=== PATIENT | female | born 1940 | race Caucasian/White ===

== ENCOUNTER 2024-03-08 18:13 | Emergency (ER) | payer MEDICARE, OTHER, SELFPAY ==
[2024-03-08] VITALS (8 sets, daily range): BP systolic 136–181; BP diastolic 74–105
[2024-03-08 18:43] LABS: % Basophils 0.5 % (0-2); % Eosinophils 1.8 % (0-6); % Immature Granulocytes 0.2 % (0-0.5); % Lymphocytes 42.7 % (20.5-51.1); % Monocytes 11.9 % (1.7-9.3); % Neutrophils 42.9 % (42.2-75.2); Absolute Eosinophils 0.1 10^3/uL (0-0.7); Absolute Lymphocytes 2.7 10^3/uL (1.2-3.4); Absolute Monocytes 0.7 10^3/uL (0.1-0.6); Absolute Neutrophils 2.7 10^3/uL (1.4-6.5); Hemoglobin 14.2 g/dL (12.0-16.0); Mean Corp Hgb Conc. 34.6 g/dL (33.0-37.0); Mean Corpuscular Hgb 30.1 pg (27.0-31.0); Mean Corpuscular Volume 86.9 fL (81.0-99.0); Mean Platelet Volume 9.3 fL (7.4-10.4); Nucleated Red Blood Cells % 0 %; Platelet Count 276 10^3/uL (130-400); Red Blood Cell Count 4.72 10^6/uL (4.20-5.40); Red Cell Dist. Width 12.3 % (11.5-14.5); White Blood Cell Count 6.2 10^3/uL (4.8-10.8)
[2024-03-08 18:53] LABS: ALT (SGPT) 36 U/L (0-35); AST (SGOT) 39 U/L (14-36); Albumin 5.1 g/dl (3.5-5.0); Alkaline Phosphatase 73 U/L (38-126); Blood Urea Nitrogen 15 mg/dl (7-17); Calcium 10.3 mg/dl (8.4-10.2); Carbon Dioxide 28 mmol/L (22-30); Chloride 96 mmol/L (98-107); Glucose 129 mg/dl (70-99); Potassium 3.8 mmol/L (3.5-5.1); Sodium 137 mmol/L (135-145); Total Bilirubin 0.4 mg/dl (0.2-1.3); Total Protein 8.1 g/dl (6.3-8.2); eGFR > 60.00
--- NOTE | 2024-03-08 19:10 | ED.GENMED ---
History of Present Illness
General
Chief Complaint: Cardiac Symptoms
Source: patient, spouse and family
Time Seen by Provider: 03/08/24 18:49
History of Present Illness
History of Present Illness:
83-year-old female states that at approximately 530 or 6 PM tonight she felt a hot 'burning' feeling in her superior aspect of her mid chest rating up to her throat that is now fully resolved. She states that she has felt this before when she had
an episode of A-fib over a year ago. She started to then feel really anxious and said she felt shaky, but this is getting better now that she is 'calming down'. She denies chest pain, shortness of breath, headache, dizziness, leg swelling,
abdominal pain, nausea, vomiting, or other complaints. Patient is very compliant with her medications and is due to take her DOAC approximately now. Of note, patient was on amiodarone for approximately a year and this was discontinued
approximately 4 months ago.
Past History
Past History
ED Past Medical History: HTN, Hypercholesterolemia and Other (A-fib)
ED Past Surgical History: Appendectomy, Cholecystectomy and Other (Lumpectomy)
Social History
Tobacco: Non-smoker
Alcohol: None
Drug: None
Personal:
Living: with family
Phy Exam
Physical Exam
Physical Exam:
GENERAL: Alert , in no apparent distress
EYE: pupils equal and reactive
NECK: Supple, no significant adenopathy.
ENT: o/p clr, mmm.
CARDIAC: Irregularly irregular, tachycardic
LUNGS: Clear breath sounds bilaterally, no acute respiratory distress, no wheezes rales or rhonchi
ABDOMEN: Soft, without focal tenderness, no r/g, no cvat
NEUROLOGICAL: Alert and oriented, no focal neuro deficits
SKIN: Warm and dry, skin intact.
MUSCULOSKELETAL: No edema, well perfused.
PSYCH: Normal and appropriate interaction.
Course
Orders/Labs/Results
Orders:
Orders
03/08/24 18:22
Electrocardiogram (*1) Urgent
Reason for Study: Atrial Fibrillation
EKG- Treatment ONCE
03/08/24 18:28
Complete Blood Count/With Diff Urgent
Comprehensive Metabolic Panel Urgent
TSH Reflex To Free T4 Urgent
03/08/24 19:10
Apixaban [Eliquis] 2.5 mg PO NOW STA
Diltiazem HCl [Cardizem] 10 mg IV NOW STA
03/08/24 19:27
Troponin I Urgent
03/08/24 19:58
Electrocardiogram (*1) Urgent
Reason for Study: Other
Other Reason for Exam: rhythm change
EKG- Treatment ONCE
03/08/24 20:32
EKG [Electrocardiogram (*1)] Urgent
Reason for Study: Other
Other Reason for Exam: sinus rhythm
EKG- Treatment ONCE
Abnormal Lab Results
03/08/24
18:28
Absolute Monos (auto) 0.7 H 10^3/uL
(0.1-0.6)
Monocytes % 11.9 H %
(1.7-9.3)
Chloride 96 L mmol/L
(98-107)
Glucose 129 H mg/dl
(70-99)
Calcium 10.3 H mg/dl
(8.4-10.2)
AST 39 H U/L
(14-36)
ALT 36 H U/L
(0-35)
Albumin 5.1 H g/dl
(3.5-5.0)
03/08/24 18:28
03/08/24 18:28
Vital Signs
Initial and Last Documented VS:
Initial Vital Signs
Temp Pulse Resp BP Pulse Ox
98.4 F 151 20 181/105 100
03/08/24 18:16 03/08/24 18:16 03/08/24 18:16 03/08/24 18:16 03/08/24 18:16
Last Documented Vital Signs
Temp Pulse Resp BP Pulse Ox
98.4 F 123 20 163/102 100
03/08/24 18:16 03/08/24 19:19 03/08/24 18:16 03/08/24 19:19 03/08/24 18:16
*Critical Care Note
Total Time (30-74mins, 75-104mins- exclusive of procedures): Not Applicable
Update Note
Update Note:
Patient presents to the Emergency Department with __chest burning and A-fib as per her Apple Watch
Number and Complexity of Problems Addressed at the Encounter
� Chronic conditions affecting care:
� Acute Exacerbation and/or Progression of Chronic Illness:
� Differential Diagnosis includes: But not limited to hyperthyroidism, anemia, electrolyte disturbance, A-fib, SVT, etc. etc.
Amount and/or Complexity of Data to be Reviewed and Analyzed
� I performed an independent evaluation of and my interpretation is:
EKG: Read by me, A-fib with RVR, slightly depressed ST laterally
CT:
Xrays:
Laboratory Studies: Unremarkable
Other:
� Review of other/old records reveals:
� Clinical information was obtained by an independent historian:
� Prescriptions/Medications Considered but not given:
� Further testing considered but not performed:
Risk of Complications and/or Morbidity or Mortality of Patient Management
� Social determinants of health affecting care:
� Discussion with other providers (PCP, Hospitalists, Consultants, etc):
� Escalation of care including admission/observation vs risk of discharge considered:Pt given 10 mg cardizem here, hr 90's...?nsr on monitor, repeat ecg still afib but st segmnts nl, pt asx. Pt was walked around the ER, no
symptoms with this, upon return to the monitor she now appears to be normal sinus rhythm. EKG being obtained now. In the meantime, case discussed with on-call compotype operator for Dr. Laws, Dr. Leonidas hastings, patient's current medications reviewed
as well as history and physical here ECG, etc. Recommendation is close cardiology follow-up. Patient is intolerant of beta-blockers and consideration to be made next week regarding reinitiating amiodarone versus another strategy. I emphasized to
patient grave importance of continuing anticoagulation as well as reasons to return to the emergency department.
8:30 PM repeat ECG is in fact consistent with normal sinus rhythm, no acute ischemia patient remains asymptomatic.
ED Attending Note
-
Portions of this chart may have been created with voice recognition software.� Occasional wrong word or��sound alike� substitutions may have occurred due to the inherent limitations of voice recognition software.
Discharge Plan
Departure
Patient with high blood pressure during this ER visit?: Yes
Condition: Good
Discharge Problem:
Atrial fibrillation
Instructions: Atrial fibrillation, BLOOD PRESSURE
Referrals:
Aram Quintanilla MD [Family Provider] -
Activity Restrictions/Additional Instructions:
PLEASE FOLLOW-UP WITH YOUR CIVIL ENGINEERING PROJECT MANAGER ON SUNDAY MORNING. CONTINUE YOUR MEDICATIONS PRESCRIBED. IF YOU DEVELOP DIZZINESS, CHEST PAIN, SHORTNESS OF BREATH, FEVER, OR OTHER WORRISOME SIGNS, PLEASE RETURN TO THE ER IMMEDIATELY.
Discharge Date and Time
Print Language: SETSWA[place]
[2024-03-08] MEDS: CARDIZEM 10 MG IV (19:19)
[2024-03-08] MEDS: ELIQUIS 2.5 MG PO (19:19)
[2024-03-08 19:25] LABS: TSH Reflex To Free T4 2.32 uIU/ml (0.47-4.68)
[2024-03-08 19:59] LABS: Troponin I 0.025 ng/ml
--- NOTE | 2024-03-08 21:01 | ED.GENMED ---
History of Present Illness
General
Chief Complaint: Cardiac Symptoms
Time Seen by Provider: 03/08/24 18:49
Past History
Past History
ED Past Medical History: HTN, Hypercholesterolemia and Other (A-fib)
ED Past Surgical History: Appendectomy, Cholecystectomy and Other (Lumpectomy)
Social History
Tobacco: Non-smoker
Alcohol: None
Drug: None
Personal:
Living: with family
Course
Orders/Labs/Results
Orders:
Orders
03/08/24 18:22
Electrocardiogram (*1) Urgent
Reason for Study: Atrial Fibrillation
EKG- Treatment ONCE
03/08/24 18:28
Complete Blood Count/With Diff Urgent
Comprehensive Metabolic Panel Urgent
TSH Reflex To Free T4 Urgent
03/08/24 19:10
Apixaban [Eliquis] 2.5 mg PO NOW STA
Diltiazem HCl [Cardizem] 10 mg IV NOW STA
03/08/24 19:27
Troponin I Urgent
03/08/24 19:58
Electrocardiogram (*1) Urgent
Reason for Study: Other
Other Reason for Exam: rhythm change
EKG- Treatment ONCE
03/08/24 20:32
EKG [Electrocardiogram (*1)] Urgent
Reason for Study: Other
Other Reason for Exam: sinus rhythm
EKG- Treatment ONCE
Abnormal Lab Results
03/08/24
18:28
Absolute Monos (auto) 0.7 H 10^3/uL
(0.1-0.6)
Monocytes % 11.9 H %
(1.7-9.3)
Chloride 96 L mmol/L
(98-107)
Glucose 129 H mg/dl
(70-99)
Calcium 10.3 H mg/dl
(8.4-10.2)
AST 39 H U/L
(14-36)
ALT 36 H U/L
(0-35)
Albumin 5.1 H g/dl
(3.5-5.0)
03/08/24 18:28
03/08/24 18:28
Vital Signs
Initial and Last Documented VS:
Initial Vital Signs
Temp Pulse Resp BP Pulse Ox
98.4 F 151 20 181/105 100
03/08/24 18:16 03/08/24 18:16 03/08/24 18:16 03/08/24 18:16 03/08/24 18:16
Last Documented Vital Signs
Temp Pulse Resp BP Pulse Ox
98.4 F 123 20 163/102 100
03/08/24 18:16 03/08/24 19:19 03/08/24 18:16 03/08/24 19:19 03/08/24 18:16
ED Attending Note
-
Portions of this chart may have been created with voice recognition software.� Occasional wrong word or��sound alike� substitutions may have occurred due to the inherent limitations of voice recognition software.
Discharge Plan
Departure
Patient Disposition: Home (Routine Discharge)
Date of Disposition: 03/08/24
Time of Disposition: 21:01
Patient with high blood pressure during this ER visit?: Yes
Condition: Good
Discharge Problem:
Atrial fibrillation
Instructions: Atrial fibrillation, BLOOD PRESSURE
Referrals:
Aram Quintanilla MD [Family Provider] -
Activity Restrictions/Additional Instructions:
PLEASE FOLLOW-UP WITH YOUR CEMENT BLOCK MAKER ON SUNDAY MORNING. CONTINUE YOUR MEDICATIONS PRESCRIBED. IF YOU DEVELOP DIZZINESS, CHEST PAIN, SHORTNESS OF BREATH, FEVER, OR OTHER WORRISOME SIGNS, PLEASE RETURN TO THE ER IMMEDIATELY.
Discharge Date and Time
Print Language: HUNGARIAN
== END 2024-03-08 21:30 | disposition home or self-care (01) ==
LOC: EMR 18:13
PROVIDERS: Student in an Organized Health Care Education/Training Program; EMERGENCY PHYSICIAN Emergency Medicine; FAMILY PHYSICIAN Family Medicine
DX: I48.91 Unspecified atrial fibrillation (principal); I10 Essential (primary) hypertension; E78.00 Pure hypercholesterolemia, unspecified; Z79.01 Long term (current) use of anticoagulants; Z90.49 Acquired absence of other specified parts of digestive tract
CPT/HCPCS: 99283; 96374; 80053; 84443; 84484; 85025; 93005

== ENCOUNTER → 2024-04-01 06:37 | Outpatient (REF) | payer MEDICARE, OTHER, SELFPAY | LOC: HWWDC 06:37 | PROVIDERS: ATTENDING PHYSICIAN Family Medicine | DX: Z12.31 Encounter for screening mammogram for malignant neoplasm of breast (principal) | CPT/HCPCS: 77063; 77067 ==

== ENCOUNTER 2024-10-19 22:03 | Inpatient (IN) | payer MEDICARE, OTHER, SELFPAY ==
[2024-10-19 18:17] VITALS: BP 155/82
--- NOTE | 2024-10-19 18:57 | ED.GENMED ---
History of Present Illness
General
Chief Complaint: Breathing Problem
Source: patient and spouse
Exam Limitations: none
Time Seen by Provider: 10/19/24 18:45
Nursing documentation reviewed up to this point in time: agreed with
History of Present Illness
History of Present Illness:
84-year-old female hypertension A-fib on Eliquis presents with fatigue and shortness of breath started yesterday had some coughing positive COVID test no vaccination this year no sick contacts no nausea or vomiting is hypoxic here not on chronic
oxygen
Past History
Past History
ED Past Medical History: Arrthythmia, HTN and Hypercholesterolemia
ED Past Surgical History: Appendectomy, Cholecystectomy and Other
Social History
Tobacco: Non-smoker
Alcohol: None
Drug: None
Personal:
Living: with family
Employment: Retired
Review of Systems
Review of Systems
All Other Systems: Not applicable
Constitutional: Reports fatigue
Respiratory: Reports cough and trouble breathing; Denies hemoptysis
Cardiac: Reports no symptoms
ABD/GI: Reports no symptoms
: Reports no symptoms
Musculoskeletal: Reports no symptoms
Skin: Reports no symptoms
Neurological: Reports weakness
Endocrine: Reports no symptoms
Phy Exam
Physical Exam
Physical Exam:
Physical Exam
General: Dyspneic appearing elderly female
Neck: No jaundice
Heart: Irregular
Lungs: Crackles left greater than right
Abdomen: Nontender
Neuro: alert and oriented. no focal neurological deficits
Skin: no rash
Psychiatric: well kept. interactive and cooperative
Extremities: no edema. no calf tenderness.
Scores
Heart Failure Risk
Heart Failure Risk Score: Not Applicable
Course
Orders/Labs/Results
Orders:
Orders
10/19/24 Breakfast
Cholesterol Lowering
Fluid Restriction: 1200 mL/day (40 oz)
Cholesterol Lowering: Sodium, 2 Gram
10/19/24 18:23
EKG [Electrocardiogram (*1)] Urgent
Reason for Study: Shortness of Breath
EKG- Treatment ONCE
10/19/24 18:45
Electrocardiogram (*1) Urgent
Reason for Study: Shortness of Breath
Cardiac Monitoring- Treatment ONCE
IV Insert/Care/Rem.- Treatment PRN
O2 Therapy [RESP] Urgent
Titrate/Wean O2 to maintain O2 sat greater than (%): 98
10/19/24 18:46
CR Chest Portable - 1 View Urgent
Comment:
Reason For Exam: sob
Reason Study Needs to be Portable: Other
If Reason is Other, explain: isolation
10/19/24 19:35
C-Reactive Protein Urgent
COVID-19 Antigen Urgent
Source: Nasal Swab
Complete Blood Count/With Diff Urgent
Comprehensive Metabolic Panel Urgent
Creatine Phosphokinase Urgent
Erythrocyte Sed Rate Urgent
Ferritin Urgent
LDH Urgent
Magnesium Urgent
Comment: ADD ON
TSH Reflex To Free T4 Urgent
Comment: ADD ON
Blood Culture Q30M
SYED Source: Blood/Venous
Specimen Description:
Influenza A+B Rapid Molecular Urgent
SYED Source: Nasal Swab
Specimen Description:
10/19/24 19:59
Blood Culture Q30M
SYED Source: Blood/Venous
Specimen Description:
10/19/24 20:53
Ipratropium/Albuterol Sulfate [Duoneb] 3 ml INH R NOW STA
Ondansetron Injectable [Zofran] 4 mg IV NOW STA
10/19/24 20:59
Dexamethasone Sod Phosphate [Decadron] 6 mg IV NOW STA
10/19/24 21:11
Procalcitonin Urgent
PCT Algorithmm Indication: Respiratory
10/19/24 21:13
Furosemide [Lasix] 40 mg IV NOW STA
Potassium Chloride [KCl] 20 meq PO NOW STA
10/19/24 21:17
Admit/Transfer Patient As Directed
Co-Sign Provider:
Level of Care: Inpatient admission
Assign to:: Telemetry
Physician / Group: Maria Waters
Diagnosis: Heart Failure
Reason for Telemetry: Pulmonary Edema
Date to Stop Telemetry: 10/22/24
Time to Stop Telemetry: 11:00
Reason for Hospitalization: Heart Failure
Expected length of stay greater than two midnights?: Yes
ELOS- Estimated Length of Stay in days: 3
I certify the patient meets the requirements for IP care: Yes
PRN Pain Medication Management As Directed
May give lesser potent ordered pain med per pt: Yes
preference::
Protocol:: Medication orders for pain may be administered in a
manner that supports deferring to patient preference
when the pt is:
- Requesting an ordered lesser potent pain medication.
Least to most potent pain medications are defined
as: acetaminophen < NSAID < tramadol < opioids
(morphine, oxycodone, hydromorphone).
- Requesting a lesser dose of the same medication IF
ORDERED.
- Requesting a less intrusive route of administration
if both routes are prescribed by the provider (PO <
IV).
10/19/24 21:18
Code Status As Directed
Resuscitation Status: Full Code
10/19/24 21:22
Add On- LAB Routine
Tests Added?: TSH with reflex to T4
Add On- LAB Routine
Tests Added?: magnesium
10/19/24 21:28
Furosemide [Lasix] 20 mg IV NOW STA
10/19/24 21:37
Troponin I Urgent
10/19/24 22:09
Urine Osmolality Random [Osmolality, Random Urine] Urgent
Date Specimen was Collected: 10/19/24
Time Specimen was Collected: 22:07
Urine Sodium Urgent
Date Specimen was Collected: 10/19/24
Time Specimen was Collected: 22:07
10/19/24 23:20
CARDIOLOGY CONSULT Routine
Consulting Provider: Nida Blair
Was physician already notified: Yes
HF DIETARY CONSULT Routine
HF EDUCATOR CONSULT Routine
Comment:
Activity As Directed
Activity Level: As Tolerated
Intake/ Output As Directed
Frequency: Per unit guidelines
Nursing to Place Non Medication Order As Directed
Physician Order: please TT Na results to overnight provider
Patient Education As Directed
Type: CHF folder
Comment: give on admission. Document in Interdisciplinary Education record
Precautions As Directed
Type of Precautions: Novel Respiratory
Sleep Apnea Assessment by RN As Directed
Comment:
Physician Instructions:
Vital Signs As Directed
Frequency: Other
Additional Instructions:: Q12 or per unit guidelines if more frequent.
Weight As Directed
Frequency: Daily
Type of Scale: Standing Scale
Comment: Daily morning weight. If unable to stand, use balanced bed scale.
Weight As Directed
Frequency: Once
Type of Scale: Standing Scale
Comment: Upon Admission. If unable to stand, use balanced bed scale.
Oxygen Therapy [O2 Therapy] [RESP] Routine
Titrate/Wean O2 to maintain O2 sat greater than (%): 90
Pulse Ox/cont/shift [RESP] Routine
Quantity: 1
Special Instructions: Daily pulse oximetry at rest. If greater than 92% at rest also obtain pulse oximetry
while ambulating as tolerated.
10/20/24 00:30
Sodium Q4H
10/20/24 04:30
Sodium Q4H
10/20/24 06:00
Echo 2D MMode Color/Doppler IN AM
Reason for Study: heart failure
Basic Metabolic Panel IN AM
Cardiovascular Evaluation IN AM
Complete Blood Count/No Diff IN AM
[id number] IN AM
Magnesium IN AM
Troponin I IN AM
10/20/24 08:00
Amlodipine [Norvasc] 5 mg PO DAILY
Apixaban [Eliquis] 2.5 mg PO BID
Dexamethasone [Decadron] 6 mg PO DAILY
Furosemide [Lasix] 20 mg IV BID AT 0800,1600
Olmesartan Medoxomil [Benicar] 40 mg PO DAILY
Pantoprazole [Protonix] 40 mg PO DAILY
10/20/24 08:30
Sodium Q4H
10/20/24 12:30
Sodium Q4H
10/20/24 16:30
Sodium Q4H
10/20/24 18:00
Pravastatin Sodium [Pravachol] 40 mg PO QPM
10/20/24 20:30
Sodium Q4H
10/20/24 22:00
Metoprolol Xl [Toprol Xl] 12.5 mg PO HS
10/21/24 06:00
Basic Metabolic Panel IN AM
10/22/24 06:00
Basic Metabolic Panel IN AM
10/22/24 11:00
DC Protocol for Telemetry ONCE
Abnormal Lab Results
10/19/24
19:35
WBC 11.5 H 10^3/uL
(4.8-10.8)
Hct 35.9 L %
(37.0-47.0)
Abs Immat Gran (auto) 0.1 H 10^3/uL
(0-0.05)
Absolute Neuts (auto) 9.6 H 10^3/uL
(1.4-6.5)
Absolute Lymphs (auto) 0.8 L 10^3/uL
(1.2-3.4)
Absolute Monos (auto) 1.0 H 10^3/uL
(0.1-0.6)
Neutrophils % 83.3 H %
(42.2-75.2)
Lymphocytes % 7.2 L %
(20.5-51.1)
Sodium 123 L mmol/L
(135-145)
Chloride 89 L mmol/L
(98-107)
Creatinine 0.5 L mg/dL
(0.6-1.0)
Glucose 132 H mg/dl
(70-99)
Magnesium 1.5 L mg/dl
(1.6-2.3)
AST 101 H U/L
(14-36)
ALT 381 H U/L
(0-35)
Alkaline Phosphatase 130 H U/L
(38-126)
Lactate Dehydrogenase 291 H U/L
(120-246)
C-Reactive Protein 45.00 H mg/L
(0.0-10.00)
10/19/24 19:35
10/19/24 19:35
Vital Signs
Initial and Last Documented VS:
Initial Vital Signs
Temp Pulse Resp BP Pulse Ox
98.3 F 73 24 155/82 85
10/19/24 18:17 10/19/24 18:17 10/19/24 18:17 10/19/24 18:17 10/19/24 18:17
Last Documented Vital Signs
Temp Pulse Resp BP Pulse Ox
98.5 F 88 18 156/100 93
10/19/24 22:40 10/19/24 22:40 10/19/24 22:40 10/19/24 22:40 10/19/24 22:40
MDM/Problems Addressed
Differential Diagnosis Includes:
COVID pneumonitis influenza pneumonia doubt PE as she is anticoagulated
MDM/Problems Addressed:
Shortness of breath cough
Chronic conditions affecting care: Arrhythmia
Acute Exacerbation and/or Progression of Chronic Illness: Arrhythmia
*Radiology
Radiology exam reviewed: preliminary read by ED provider
*Pulse Oximetry
Patient hypoxic: yes
*EKG
Interpreted by ED Provider?: Yes
Interpretation: abnormal
Comparison EKG: no comparison EKG present
Heart Rate: 78
Rate: normal
Rhythm: a-fib
Ischemia: non-specific ST changes
*Tape Rules Printing Machine Operator Interpretation
Rate: normal
Interpretation: normal
Heart Rate: 78
Rhythm: a-fib
*Critical Care Note
Total Time (30-74mins, 75-104mins- exclusive of procedures): 30
Update Note
Update Note:
8:45 PM chest x-ray report noted labs are noted generously negative COVID swab here, multiple allergies,
ED Attending Note
-
Portions of this chart may have been created with voice recognition software.� Occasional wrong word or��sound alike� substitutions may have occurred due to the inherent limitations of voice recognition software.
Discharge Plan
Departure
Patient Disposition: Admit
Date of Disposition: 10/19/24
Time of Disposition: 20:55
Admit to: Med/Surg
Presentation/result/management discussed w/ accepting MD/DO: Hospitalist
Patient with high blood pressure during this ER visit?: No
Condition: Fair
Covid-19: Suspected COVID-19
Discharge Problem:
Hypoxia, Pneumonia
Interventions
Interventions:
*Risk Screen - Suicide Last Done: 10/19/24 18:17
*General Assessment Last Done: 10/19/24 18:17
*Neglect/Abuse Screening Last Done: 10/19/24 20:03
*ED- Fall Risk Assessment Last Done: 10/19/24 18:17
*ED COVID-19 Vaccine History Last Done: 10/19/24 18:17
*Nursing Disposition Last Done: 10/19/24 22:25
ED- Cardiac Assessment Last Done: 10/19/24 20:03
ED- Pulmonary Assessment Last Done: 10/19/24 20:03
Discharge Date and Time
Discharge Date/Time: 10/19/24 22:25
[2024-10-19 19:00] VITALS: BP 145/81
[2024-10-19 20:00] VITALS: BP 133/79
[2024-10-19 20:03] VITALS: BMI 25.4
--- NOTE | 2024-10-19 20:10 | EDRN ---
Pt says she started feeling unwell yesterday. Pt noted non productive cough overnight. Pt with fatigue and sob today. Pt says her daughter made her come to the hospital for evaluation. No ill contacts. Pt did home test today and it was positive
for covid. Pt had cp last night but says that is gone. Pt feels better on O2. When O2 comes off, pt's pulse ox drops into 80's. Pt denies fever/chills, sob now, abd pain, n/v, weakness, urinary symptoms.
[2024-10-19 20:14] LABS: % Basophils 0.2 % (0-2); % Immature Granulocytes 0.4 % (0-0.5); % Lymphocytes 7.2 % (20.5-51.1); % Monocytes 8.9 % (1.7-9.3); % Neutrophils 83.3 % (42.2-75.2); Absolute Immature Granulocytes 0.1 10^3/uL (0-0.05); Absolute Lymphocytes 0.8 10^3/uL (1.2-3.4); Absolute Neutrophils 9.6 10^3/uL (1.4-6.5); Hematocrit 35.9 % (37.0-47.0); Hemoglobin 13.1 g/dL (12.0-16.0); Mean Corp Hgb Conc. 36.5 g/dL (33.0-37.0); Mean Corpuscular Hgb 30.5 pg (27.0-31.0); Mean Corpuscular Volume 83.7 fL (81.0-99.0); Mean Platelet Volume 9.3 fL (7.4-10.4); Nucleated Red Blood Cells % 0 %; Platelet Count 259 10^3/uL (130-400); Red Blood Cell Count 4.29 10^6/uL (4.20-5.40); Red Cell Dist. Width 12.2 % (11.5-14.5); White Blood Cell Count 11.5 10^3/uL (4.8-10.8)
[2024-10-19 20:22] LABS: ALT (SGPT) 381 U/L (0-35); AST (SGOT) 101 U/L (14-36); Albumin 3.9 g/dl (3.5-5.0); Alkaline Phosphatase 130 U/L (38-126); Blood Urea Nitrogen 9 mg/dl (7-17); Calcium 8.7 mg/dl (8.4-10.2); Carbon Dioxide 27 mmol/L (22-30); Chloride 89 mmol/L (98-107); Creatine Phosphokinase 66 U/L (30-135); Estimated Creatinine Clearance 64 ml/min; Glucose 132 mg/dl (70-99); LDH 291 U/L (120-246); Potassium 3.9 mmol/L (3.5-5.1); Sodium 123 mmol/L (135-145); Total Bilirubin 1.1 mg/dl (0.2-1.3); Total Protein 6.5 g/dl (6.3-8.2); eGFR > 60.00
[2024-10-19 20:25] LABS: Erythrocyte Sed Rate 3 mm/hour (0-20)
[2024-10-19 20:28] LABS: COVID-19 Antigen Negative (Negative)
--- NOTE | 2024-10-19 20:54 | HPS.HSE ---
Family Physician
-
Family Physician: Aram Quintanilla
Chief Complaint
-
shortness of breath
History of Present Illness
Ms. Meghna Vasquez is a 84 yo woman with hx atrial fibrillation on Eliquis, HTN, HLD presents to the ER with progressive shortness of breath and cough. She tested positive for COVID at home.
She states that over the past couple of weeks she has had worsening shortness of breath, where she feels winded when she's up and getting ready. She thought it was the recent initiation of Metoprolol for her afib. She has noticed 6-7 weight gain
over the past week. Over the past couple of days she has had increasing cough that kept her up at night as well as gastritis and some nausea. She tested positive for Covid this morning.
No fevers/chills. No headache. No chest pain. No LE swelling. She is not on Lasix at home.
She sees her Electronic Pagination System Operator at [place].
Medical History
Past Medical History
Past Medical History: Reports Other ( atrial fibrillation on Eliquis, HTN, HLD)
Past Surgical History: Reports Other
Social History
Tobacco: Non-smoker
Alcohol: None
Family History
Family History: Not pertinent
Allergies / Home Medications
Allergies reflects when Allergies were last updated in [facility].
Home Medications with original date entered in [facility]
Allergy/Medication List:
Allergies
Allergy/AdvReac Type Severity Reaction Status Date / Time
KOMAL Inhibitors Allergy Mild Nausea / Verified 10/19/24 18:17
Vomiting
iodine Allergy Mild Hives Verified 10/19/24 18:17
ciprofloxacin [From Cipro] Allergy Hives Verified 10/19/24 18:17
lobster Allergy Unknown Verified 10/19/24 18:17
Penicillins Allergy Hives Verified 10/19/24 18:17
Sulfa (Sulfonamide Allergy Rash Verified 10/19/24 18:17
Antibiotics)
Home Medications
PreserVision AREDS 1 tab PO BID 10/19/24
apixaban 2.5 mg tablet (Eliquis) 2.5 mg PO BID 10/19/24
ascorbic acid (vitamin C) 500 mg tablet (Vitamin C) 500 mg PO DAILY 10/19/24
cholecalciferol (vitamin D3) 25 mcg (1,000 unit) tablet 25 mcg PO DAILY 10/19/24
flecainide 100 mg tablet 50 mg PO BID 10/19/24
magnesium 30 mg tablet 30 mg PO DAILY 10/19/24
metoprolol succinate 25 mg tablet,extended release 24 hr 12.5 mg PO HS 10/19/24
olmesartan 40 mg-amlodipine 5 mg-hydrochlorothiazide 25 mg tablet 1 tab PO DAILY 10/19/24
pravastatin 40 mg tablet 40 mg PO QPM 10/19/24
Review of Systems
-
History Source: Patient
A 12 point ROS was completed and negative except as noted: Yes
Physical Exam
Vital Signs
Vital Signs
Temp Pulse Resp BP Pulse Ox
98.3 F 90 28 133/79 93
10/19/24 18:17 10/19/24 20:00 10/19/24 20:00 10/19/24 20:00 10/19/24 20:00
Physical Exam
General: No Apparent Distress
HEENT: PERRLA
Respiratory: Rales
Cardiac: S1/S2, Regular Rhythm and HJR
GI: Soft and Non Tender
Musculoskeletal: No Edema
Skin: Warm and Dry; No Rash
Neuro: AO x 3
Psych: Calm
Laboratory Results
-
10/19/24 19:35
10/19/24 19:35
Laboratory Results
Total Bilirubin 1.1 mg/dl (0.2-1.3) 10/19/24 19:35
AST 101 U/L (14-36) H 10/19/24 19:35
ALT 381 U/L (0-35) H 10/19/24 19:35
Alkaline Phosphatase 130 U/L (38-126) H 10/19/24 19:35
Data Reviewed
-
Diagnostic Radiology: Report Reviewed by me
Lab Data: Labs Reviewed by me
Impression/Plan
-
Ms. Meghna Vasquez is a 84 yo woman with hx atrial fibrillation on Eliquis, HTN, HLD presents to the ER with shortness of breath. She tested positive for COVID at home.
Triage VS: T 98.3, P 73, RR 24, BP 155/82, SpO2 85% RA
LABS: WBC 11.5, Hg 13.1, PLT 259, Na 123, K+ 3.9, Cl 89, Cr 0.5, T. Bili 1.1, AST 101, ALT 381, Alk Phos 130
CXR
IMPRESSION:
Small bilateral pleural effusions with associated atelectasis and/or pneumonia, left greater than right.
Possible superimposed pulmonary interstitial edema. Cannot rule out component of underlying chronic interstitial lung disease.
MAR: Aravind Blair
Hypoxic Respiratory Insufficiency 2/2 Covid-19
-patient tested positive for Covid at home but negative here; suspect false negative here
-admit to telemetry
-start Decadron
-Covid precautions
-O2 support as needed
-hold off on Remdesivir with elevated liver enzymes
Heart Failure unknown EF acute exacerbation
-This may be main reason for hypoxia
-Lasix 20mg IV x 1 now and start BID (lasix naive with good kidney function); monitor output and adjust as necessary
-F/U TSH (add on to labs drawn pre steroids)
-TTE
-Cardiology consult
Hyponatremia
-Na 123. Patient Hypervolemic and is on HCTZ at home. She reports drinking a lot of water.
-hold HCTZ and stop at discharge
-Lasix as above
-Fluid restriction 1200cc/24 hours
-trend Na q 4 hours overnight
-Renal consult if no improvement with above interventions
Atrial Fibrillation
-DIAL PAINTER Metoprolol 12.mg PO qhs
-DIAL PAINTER Eliquis
-discussed with Dr. Blair and will hold DIAL PAINTER Flecainide. QTC 507; currently in afib
Transaminitis in setting of Covid-19
-no abdominal pain
-repeat labs tomorrow
Essential HTN
-hold HCTZ
-DIAL PAINTER Olmesartan 40mg PO QD
-DIAL PAINTER Amlodipine 5mg PO QD
HLD
-DIAL PAINTER Statin
DVT PPx: DIAL PAINTER Eliquis
FULL CODE
76 minutes spent on patient care
[2024-10-19 21:00] VITALS: BP 152/82
[2024-10-19] MEDS: DUONEB 3 ML INH (21:11)
[2024-10-19] MEDS: ZOFRAN 4 MG IV (21:11)
[2024-10-19] MEDS: DECADRON 6 MG IV (21:18)
[2024-10-19] MEDS: LASIX 20 MG IV (21:38)
[2024-10-19] MEDS: KCL 20 MEQ PO (21:38)
[2024-10-19 21:54] LABS: Magnesium 1.5 mg/dl (1.6-2.3)
[2024-10-19 22:09] LABS: Procalcitonin < 0.05 ng/ml (0.0-0.25)
[2024-10-19 22:17] LABS: Osmolality Urine 450 mOsm/kg (300-900)
[2024-10-19 22:26] LABS: TSH Reflex To Free T4 2.08 uIU/ml (0.47-4.68)
[2024-10-19 22:31] LABS: Urine Sodium 116 mmol/L (30-90)
[2024-10-19 22:40] VITALS: BP 156/100
[2024-10-19 22:44] VITALS: BP 156/100
[2024-10-19] MEDS: MAGNESIUM SULFATE 50 IV (23:25)
[2024-10-20 00:36] VITALS: BMI 25.4
[2024-10-20 01:05] LABS: Sodium 123 mmol/L (135-145)
[2024-10-20 03:00] VITALS: BP 137/76
[2024-10-20 06:00] VITALS: BMI 25.2
[2024-10-20 06:05] LABS: Hemoglobin 13.5 g/dL (12.0-16.0); Mean Corp Hgb Conc. 35.5 g/dL (33.0-37.0); Mean Corpuscular Hgb 29.9 pg (27.0-31.0); Mean Corpuscular Volume 84.3 fL (81.0-99.0); Mean Platelet Volume 9.1 fL (7.4-10.4); Platelet Count 270 10^3/uL (130-400); Red Blood Cell Count 4.51 10^6/uL (4.20-5.40); Red Cell Dist. Width 12.2 % (11.5-14.5); White Blood Cell Count 7.3 10^3/uL (4.8-10.8)
[2024-10-20 07:08] LABS: ALT (SGPT) 336 U/L (0-35); AST (SGOT) 78 U/L (14-36); Albumin 4.4 g/dl (3.5-5.0); Alkaline Phosphatase 133 U/L (38-126); Blood Urea Nitrogen 10 mg/dl (7-17); Calcium 8.8 mg/dl (8.4-10.2); Carbon Dioxide 29 mmol/L (22-30); Chloride 87 mmol/L (98-107); Direct Bilirubin 0.2 mg/dl (0.0-0.4); Estimated Creatinine Clearance 62 ml/min; Glucose 140 mg/dl (70-99); HDL Cholesterol 68 mg/dl; LDL Cholesterol, Calculated 82 mg/dl; Potassium 4.1 mmol/L (3.5-5.1); Sodium 125 mmol/L (135-145); Total Bilirubin 0.9 mg/dl (0.2-1.3); Total Cholesterol 163 mg/dl (50-199); Total Protein 6.9 g/dl (6.3-8.2); Triglyceride 65 mg/dl (10-149); Very Low Density Lipoprotein 13 mg/dl (0-30); eGFR > 60.00
[2024-10-20 07:16] LABS: Troponin I 0.013 ng/ml
[2024-10-20 07:47] VITALS: BP 125/71
--- NOTE | 2024-10-20 08:21 | CON.CAR ---
Addendum entered and electronically signed by Bernabe Almendarez MD 10/20/24 15:03:
84 yo female with PMH of paroxysmal A fib on flecainide as outpatient, moderate (Echo Jul 2024) is admitted with SOB, abdominal fullness, weight gain. Being treated for COVID. We are consulted for acute HF and recurrence of A fib. Exam with
tachy, irregular rhythm, no murmurs, no edema. Cr 0.5. Tele: A fib 90s.
A fib, recurrence. She was taking low dose eliquis for unclear reasons. Increase to 5mg bid. Will focus on rate control while she is being treated for COVID, and can assess for rhythm control as outpatient if remains in A fib. Will hold flecainide
since not on adequate OAC. Will increase Toprol XL to 12.5mg bid. She reports bradycardia when on higher doses.
Acute HFPEF. Severe, requiring hospitalization, and IV diuresis, with close monitoring of labs/tele. Continue lasix 20mg IV bid. Case mgmt c/s for SGLT2i.
Original Note:
Consultation
Consultation Request
Date/Time Consultation Requested: 10/19/24 2330
Date/Time Consultation Performed: 10/20/24 0820
Requesting Provider: Dr. Waters
Performing Provider: Shaye HUNTER for Dr. Almendarez
Reason for Consultation: CHF
Medical History
-
Chief Complaint: SOB
History of Present Illness:
84 y/o female (flame cutting machine operator helper is Dr. Ceja, [facility]) with paroxysmal AFIB on Eliquis, hypertension, hyperlipidemia, aortic stenosis. She was last seen in her cardiology office 10/17/24 and I reviewed that note, which reported that due to symptomatic
afib, she was recently started on flecainide and restarted on metoprolol, but then developed symptomatic bradycardia, so doses were reduced. She is here for evaluation of GALLARDO (worse for about 3 weeks) and cough. She tested positive for COVID-19 on a
home test (though negative here). She is being treated for COVID19 with steroids, not on antiviral at this time due to elevated LFT's. She is on O2 by [place] and is in no distress at the time of my assessment. We are consulted for CHF. She has noted 8
lb weight gain in the past 1.5 weeks and abdominal bloating. She is being given IV Lasix. She is in rate-controlled afib here. She is seen to have hyponatremia and elevated LFT's.
Past Medical History
Past Medical History: Arrhythmias, HTN, Hypercholesterolemia and Valvular Disease
Social History
Tobacco: Non-Smoker
Family History
Family History: Reviewed & Not Pertinent
Allergies / Home Medications
Allergy/AdvReac Type Severity Reaction Status Date / Time
KOMAL Inhibitors Allergy Mild Nausea / Verified 10/19/24 18:17
Vomiting
iodine Allergy Mild Hives Verified 10/19/24 18:17
ciprofloxacin [From Cipro] Allergy Hives Verified 10/19/24 18:17
lobster Allergy Unknown Verified 10/19/24 18:17
Penicillins Allergy Hives Verified 10/19/24 18:17
Sulfa (Sulfonamide Allergy Rash Verified 10/19/24 18:17
Antibiotics)
�Medication �Instructions �Recorded �Confirmed �Type
PreserVision AREDS 1 tab PO BID Eye Condition 10/19/24 10/19/24 History
apixaban 2.5 mg tablet (Eliquis) 2.5 mg PO BID Blood Clot 10/19/24 10/19/24 History
Prevention/Tx
ascorbic acid (vitamin C) 500 mg 500 mg PO DAILY Supplement 10/19/24 10/19/24 History
tablet (Vitamin C)
cholecalciferol (vitamin D3) 25 25 mcg PO DAILY Supplement 10/19/24 10/19/24 History
mcg (1,000 unit) tablet
flecainide 100 mg tablet 50 mg PO BID Heart 10/19/24 10/19/24 History
Disease/Condition
magnesium 30 mg tablet 30 mg PO DAILY Supplement 10/19/24 10/19/24 History
metoprolol succinate 25 mg 12.5 mg PO HS Heart 10/19/24 10/19/24 History
tablet,extended release 24 hr Disease/Condition
olmesartan 40 mg-amlodipine 5 1 tab PO DAILY Blood Pressure 10/19/24 10/19/24 History
mg-hydrochlorothiazide 25 mg tablet
pravastatin 40 mg tablet 40 mg PO QPM High Cholesterol 10/19/24 10/19/24 History
Review of Systems
-
History Source: Patient
All other systems: Negative unless noted
Constitutional: Weight Gain
Respiratory: Cough and Trouble Breathing
Physical Exam
Vital Signs
Temp Pulse Resp BP Pulse Ox
99.5 F 93 16 125/71 94
10/20/24 07:47 10/20/24 07:47 10/20/24 07:47 10/20/24 07:47 10/20/24 07:47
Lab Results
10/20/24 05:48
Troponin I 0.013 ng/ml 10/20/24 05:48
Physical Exam
General: Well Developed, Well Nourished and No Apparent Distress
HEENT: Normocephalic and Anicteric
Respiratory: Other (diminished to bases, on O2 by [place])
Cardiac: Irregular Rhythm and Murmur (II/ systolic murmur)
GI: Other (abdominal bloating)
Musculoskeletal: No Edema
Skin: Warm and Dry
Neuro: AO x 3
Psych: Calm
Impression / Plan
-
COVID19:
-positive at home, negative here and false negative suspected
-she is getting steroids, but no antiviral due to elevated LFT's
-management per primary team
-on O2 by [place]
Acute HFpEF:
-GALLARDO, 8 lb weight gain, abdominal bloating. BNP ordered and pending.
-recent echo July as below, moderate
-agree with IV lasix, which requires intensive monitoring
-thinks goal weight is 136-138 lbs- currently 146 lbs.
AFIB: paroxysmal
-recently started on flecainide (per OP chart recent nuc stress test no ischemia) and restarted on metoprolol. Notes reviewed and previously on amio which was stopped last year due to cough.
-flec and metoprolol decreased due to symptomatic bradycardia recently. Flecainide held currently. Continue metoprolol and follow telemetry.
-afib is rate-controlled
-importantly, she does not appear to be on the correct dose of Eliquis- based on weight (never below 136 lbs per patient) and creatinine, she should be on 5 mg PO BID- I have explained this to her and ordered correct dosing.
Hyponatremia:
-123, now 125- monitor with diuresis
-HCTZ stopped
-consider nephro if needed
HTN:
-stable on ARB, CCB, BB
Data Reviewed
-
EKG: Tracing Personally Visualized and interpreted (AFIB 93 BPM- QTC 448 to my manual review, some baseline artifact)
Radiology: Report Reviewed by me (CXR: Small bilateral pleural effusions with associated atelectasis and/or pneumonia, left greater than right. Possible superimposed pulmonary interstitial edema. Cannot rule out component of underlying chronic
interstitial lung disease.)
Medical Tests (Nuc Med, Echo etc): Report Reviewed by me (Echo 07/21/24: EF 55-60%, mild concentric LVH, moderate (peak and mean gradients 40/21 mmhg, DEWAYNE 1.3 cm2), PAP 40-45 mmhg )
Labs: Labs Reviewed by me
[2024-10-20] MEDS: PROTONIX 40 MG PO (08:25)
[2024-10-20] MEDS: NORVASC PO (08:25)
[2024-10-20] MEDS: BENICAR 40 MG PO (08:25)
[2024-10-20] MEDS: DECADRON 6 MG PO (08:26)
[2024-10-20] MEDS: LASIX 20 MG IV ×2 (08:26→16:57)
[2024-10-20] MEDS: ELIQUIS 2.5 MG PO ×2 (08:26→10:27)
--- NOTE | 2024-10-20 08:46 | W.PN.HOSP.TC ---
Today's Communication/Plan
-
Continue IV diuresis
Assessment / Plan
Assessment / Plan
Physical Exam
General: No Apparent Distress
HEENT: Normocephalic
Respiratory: Rales
Cardiac: S1/S2, Regular Rhythm and HJR
GI: Soft and Non Tender. Positive bowel sounds.
Musculoskeletal: No Edema
Skin: Warm and Dry; No Rash
Neuro: AO x 3
Psych: Calm
Assessment/Plan
84 yo female with past medical history of atrial fibrillation on Eliquis, HTN and HLD presented to the ER with progressive shortness of breath and cough. She tested positive for COVID at home.
She states that over the past couple of weeks (prior to presentation) she has had worsening shortness of breath, where she feels winded when she's up and getting ready. She thought it was the recent initiation of Metoprolol for her A-fib. She has
noticed 6-7 weight gain over the past week. Over the past couple of days she has had increasing cough that kept her up at night as well as gastritis and some nausea. She tested positive for Covid on the morning of presentation. She is not on Lasix
at home.
She sees her Cellular Plastics Cutter at [place].
Triage VS: T 98.3, P 73, RR 24, BP 155/82, SpO2 85% RA
LABS: WBC 11.5, Hg 13.1, PLT 259, Na 123, K+ 3.9, Cl 89, Cr 0.5, T. Bili 1.1, AST 101, ALT 381, Alk Phos 130
CXR
IMPRESSION:
Small bilateral pleural effusions with associated atelectasis and/or pneumonia, left greater than right.
Possible superimposed pulmonary interstitial edema. Cannot rule out component of underlying chronic interstitial lung disease.
MAR: Aravind Blair
Hypoxic Respiratory Insufficiency 2/2 Heart Failure Exacerbation and Possibly Covid-19
-patient tested positive for Covid at home but negative here; suspect false negative here
-Continue to monitor on telemetry
-Continue Decadron
-Covid precautions
-O2 support as needed
-hold off on Remdesivir with elevated liver enzymes
Heart Failure unknown EF acute exacerbation
-This may be main reason for hypoxia
-Continue Lasix IV 20 mg BID
-F/U TSH (add on to labs drawn pre steroids)
-TTE
-Cardiology consult
Hyponatremia
-Na 123 initially, improved. Patient Hypervolemic and is on HCTZ at home. She reports drinking a lot of water.
-hold HCTZ and stop at discharge
-Lasix as above
-Fluid restriction 1200cc/24 hours
-trend Na q 4 hours overnight
-Renal consult if no improvement with above interventions
Atrial Fibrillation
-CONSERVATOR ARTIFACTS Metoprolol 12.mg PO qhs
-CONSERVATOR ARTIFACTS Eliquis
-Dr. Waters discussed with Dr. Blair and held CONSERVATOR ARTIFACTS Flecainide
Transaminitis in setting of Covid-19
-no abdominal pain
-repeat CMP
Essential HTN
-hold HCTZ
-CONSERVATOR ARTIFACTS Olmesartan 40mg PO QD
-CONSERVATOR ARTIFACTS Amlodipine 5mg PO QD
HLD
-CONSERVATOR ARTIFACTS Statin
DVT PPx: CONSERVATOR ARTIFACTS Eliquis
FULL CODE
Anticipated Discharge: > 48 hours
Subjective/Interval History
-
Date of Service: October 20, 2024
Patient was seen and examined. She reported her shortness of breath is better today.
Objective Data
-
Labs:
Laboratory Results
10/20/24 10/20/24 10/20/24
00:41 04:30 05:48
WBC 7.3
Hgb 13.5
Hct 38.0
Plt Count 270
Sodium 123 L Cancelled 125 L
Potassium 4.1
Chloride 87 L
Carbon Dioxide 29
BUN 10
Creatinine 0.5 L
Glucose 140 H
Calcium 8.8
Total Bilirubin 0.9
AST 78 H
ALT 336 H
Alkaline Phosphatase 133 H
10/20/24 10/20/24 10/20/24
10:00 14:00 18:00
WBC
Hgb
Hct
Plt Count
Sodium Pending Pending Pending
Potassium
Chloride
Carbon Dioxide
BUN
Creatinine
Glucose
Calcium
Total Bilirubin
AST
ALT
Alkaline Phosphatase
10/20/24
22:00
WBC
Hgb
Hct
Plt Count
Sodium Pending
Potassium
Chloride
Carbon Dioxide
BUN
Creatinine
Glucose
Calcium
Total Bilirubin
AST
ALT
Alkaline Phosphatase
Vital Signs:
Vital Signs
Temp Pulse Resp BP Pulse Ox
99.5 F 93 16 125/71 94
10/20/24 07:47 10/20/24 08:26 10/20/24 07:47 10/20/24 08:26 10/20/24 07:47
[2024-10-20 09:53] LABS: NT-proBNP 7060 pg/ml
[2024-10-20 10:06] LABS: Sodium 125 mmol/L (135-145)
[2024-10-20] MEDS: TOPROL XL 12.5 MG PO ×2 (11:13→19:40)
[2024-10-20] MEDS: NORVASC 5 MG PO (11:14)
[2024-10-20 11:17] VITALS: BP 129/78
[2024-10-20 14:41] LABS: Sodium 125 mmol/L (135-145)
--- NOTE | 2024-10-20 14:56 | CM ---
Addendum entered by Saniya Arora 10/20/24 17:45:
CM consult Jardiance 10mg daily & Farxiga 10mg daily cost
tt Shaye Mayelin
Farxiga not covered
Jardiance $569.75 QTY 30
Original Note:
Patient seen at bedside
IA completed
Lives with in a 2 story home, resides on 1st floor, 2 steps to enter
PLOF: Independent, no assistive device
DME: walker, cane
denies VN/Rehab
PCP: Aram Quintanilla
Pharmacy: [facility], [address], [place]
PLAN: Home, currently no needs, CM to continue to follow ?02 needs
[2024-10-20 16:03] VITALS: BP 128/74
[2024-10-20] MEDS: PRAVACHOL 40 MG PO (17:07)
[2024-10-20 18:32] LABS: Sodium 122 mmol/L (135-145)
[2024-10-20 19:35] VITALS: BP 128/88
[2024-10-20] MEDS: ELIQUIS 5 MG PO (19:39)
[2024-10-20 22:03] LABS: Sodium 124 mmol/L (135-145)
[2024-10-20 23:08] VITALS: BP 119/80
[2024-10-21 03:57] VITALS: BP 131/78
[2024-10-21 06:00] VITALS: BMI 24.5
[2024-10-21 06:58] LABS: Hematocrit 37.4 % (37.0-47.0); Hemoglobin 13.3 g/dL (12.0-16.0); Mean Corp Hgb Conc. 35.6 g/dL (33.0-37.0); Mean Corpuscular Hgb 30.6 pg (27.0-31.0); Mean Platelet Volume 9.3 fL (7.4-10.4); Platelet Count 314 10^3/uL (130-400); Red Blood Cell Count 4.35 10^6/uL (4.20-5.40); Red Cell Dist. Width 12.7 % (11.5-14.5); White Blood Cell Count 12.7 10^3/uL (4.8-10.8)
[2024-10-21 07:18] LABS: ALT (SGPT) 237 U/L (0-35); AST (SGOT) 50 U/L (14-36); Albumin 3.9 g/dl (3.5-5.0); Alkaline Phosphatase 104 U/L (38-126); Blood Urea Nitrogen 20 mg/dl (7-17); Calcium 9.4 mg/dl (8.4-10.2); Carbon Dioxide 31 mmol/L (22-30); Chloride 91 mmol/L (98-107); Estimated Creatinine Clearance 54 ml/min; Glucose 96 mg/dl (70-99); Potassium 4.3 mmol/L (3.5-5.1); Sodium 130 mmol/L (135-145); Total Bilirubin 0.8 mg/dl (0.2-1.3); Total Protein 6.6 g/dl (6.3-8.2); eGFR > 60.00
[2024-10-21 07:38] VITALS: BP 144/71
[2024-10-21] MEDS: BENICAR 40 MG PO (08:20)
[2024-10-21] MEDS: PROTONIX 40 MG PO (08:21)
[2024-10-21] MEDS: NORVASC 5 MG PO (08:21)
[2024-10-21] MEDS: DECADRON 6 MG PO (08:21)
[2024-10-21] MEDS: ELIQUIS 5 MG PO ×2 (08:21→20:42)
[2024-10-21] MEDS: TOPROL XL 12.5 MG PO ×2 (08:21→20:42)
[2024-10-21] MEDS: LASIX 20 MG IV ×2 (08:22→17:07)
--- NOTE | 2024-10-21 10:02 | W.PN.CD ---
Today's Communication / Plan
-
cotninue IV diuresis with intensive monitoring
continue current bp medications
Impression / Plan
-
OP Larry Operator is Dr. Ceja, [facility]
COVID19:
-positive at home, negative here and false negative suspected
-she is getting steroids, but no antiviral due to elevated LFT's
-management per primary team
-on O2 by [place]
Acute HFpEF:
-Diuresing nicely.Reports feels good at 137-139lbs, lets aim for 139lbs
-continue with IV lasix, which requires intensive monitoring
-SGLT2i:Farxiga not covered,Jardiance $569.75 QTY 30
-continue ARB
-will hold off on MRA with hyponatremia
AFIB: paroxysmal
-recently started on flecainide (per OP chart recent nuc stress test no ischemia) and restarted on metoprolol. Notes reviewed and previously on amio which was stopped last year due to cough.
-flec and metoprolol decreased due to symptomatic bradycardia recently.
-Will focus on rate control while Active COVID and stop flecainide given inappropriate Eliquis dosing, can reconsider as OP with typical provider.
-Continue metoprolol, currently rate controlled.
-Eliquis dosed appropriately now.
Hyponatremia:
-improved with diuresis
-HCTZ stopped
HTN:
-stable on ARB, CCB, BB
-will have to break up her combo pill on discharge
Subjective:
feeling much better, weaning oxygen
Data:
Echo 07/21/24: EF 55-60%, mild concentric LVH, moderate (peak and mean gradients 40/21 mmhg, DEWAYNE 1.3 cm2), PAP 40-45 mmhg )
Physical Exam
Vital Signs/Labs
Vital Signs
Temp Pulse Resp BP Pulse Ox
98.0 F 74 17 144/71 96
04/08/25 07:38 10/21/24 08:22 10/21/24 07:38 10/21/24 08:22 10/21/24 07:38
10/20/24 10/21/24 10/22/24
06:59 06:59 06:59
Actual Weight 66.48 kg 64.728 kg
10/21/24 06:26
10/21/24 06:26
Magnesium 2.0 mg/dl (1.6-2.3) 10/20/24 05:48
Triglycerides 65 mg/dl (10-149) 10/20/24 05:48
LDL Cholesterol, Calc 82 mg/dl 10/20/24 05:48
VLDL Cholesterol, Calc 13 mg/dl (0-30) 10/20/24 05:48
HDL Cholesterol 68 mg/dl 10/20/24 05:48
10/20/24
05:48
[id number] Pept 7060
LAB Results
10/19/24 10/20/24
21:37 05:48
Troponin I 0.020 0.013
Physical Exam
Constitutional: No acute distress
Cardiovascular: Pedal edema is absent, JVD pressure is normal, Systolic murmur absent, Diastolic murmur absent and Rhythm/rate is irregular
Respiratory: Respiratory effort normal and Other (expiratory squeak initially)
Neuro/Psych: AO x 3
Data Reviewed
-
Date of Service: October 21, 2024
EKG: Other (tele rate controlled afib)
[2024-10-21 10:54] VITALS: BP 127/69
--- NOTE | 2024-10-21 13:09 | W.PN.HOSP.TC ---
Today's Communication/Plan
-
Continue IV diuresis, approaching goal weight
Home oxygen assessment
Assessment / Plan
Assessment / Plan
Physical Exam
General: No Apparent Distress
HEENT: Normocephalic
Respiratory: Rales
Cardiac: S1/S2, Regular Rhythm and HJR
GI: Soft and Non Tender. Positive bowel sounds.
Musculoskeletal: No Edema
Skin: Warm and Dry; No Rash
Neuro: AO x 3
Psych: Calm
Assessment/Plan
84 yo female with past medical history of atrial fibrillation on Eliquis, HTN and HLD presented to the ER with progressive shortness of breath and cough. She tested positive for COVID at home.
She states that over the past couple of weeks (prior to presentation) she has had worsening shortness of breath, where she feels winded when she's up and getting ready. She thought it was the recent initiation of Metoprolol for her A-fib. She has
noticed 6-7 weight gain over the past week. Over the past couple of days she has had increasing cough that kept her up at night as well as gastritis and some nausea. She tested positive for Covid on the morning of presentation. She is not on Lasix
at home.
She sees her Sourcing Coordinator at [place].
Triage VS: T 98.3, P 73, RR 24, BP 155/82, SpO2 85% RA
LABS: WBC 11.5, Hg 13.1, PLT 259, Na 123, K+ 3.9, Cl 89, Cr 0.5, T. Bili 1.1, AST 101, ALT 381, Alk Phos 130
CXR
IMPRESSION:
Small bilateral pleural effusions with associated atelectasis and/or pneumonia, left greater than right.
Possible superimposed pulmonary interstitial edema. Cannot rule out component of underlying chronic interstitial lung disease.
MAR: Duconstanza, Aravind
Hypoxic Respiratory Insufficiency 2/2 Heart Failure Exacerbation and Possibly Covid-19
-patient tested positive for Covid at home but negative here; suspect false negative here
-Continue to monitor on telemetry
-Continue Decadron
-Covid precautions
-O2 support as needed
-hold off on Remdesivir with elevated liver enzymes
Leukocytosis
-Suspected secondary to steroids
-Continue to monitor
Heart Failure unknown EF acute exacerbation
-This may be main reason for hypoxia
-Continue Lasix IV 20 mg BID
-Weight is improving, goal weight is 137 to 139 lbs
-Regarding SGLT2i: Farxiga is not covered, and Jardiance is $569.75 for a QTY of 30
-Continue ARB medication
-F/U TSH (add on to labs drawn pre steroids)
-TTE
-Cardiology consult
Hyponatremia
-Na 123 initially, improved significantly. Patient Hypervolemic and is on HCTZ at home. She reports drinking a lot of water.
-hold HCTZ and stop at discharge
-Lasix as above
-Fluid restriction 1200cc/24 hours
-Renal consult if no improvement with above interventions
Atrial Fibrillation
-Home Metoprolol Succinate increased to from 12.5 mg HS to 12.5 mg BID
-Continue Eliquis but 5 mg BID (increased from home 2.5 mg BID)
-Dr. Waters discussed with Dr. Blair and held NEWS INTERN Flecainide (stopped Flecainide) -- just focus on rate control for now
Transaminitis in setting of Covid-19
-no abdominal pain
-repeat CMP
Essential HTN
-hold HCTZ
-NEWS INTERN Olmesartan 40mg PO QD
-NEWS INTERN Amlodipine 5mg PO QD
HLD
-NEWS INTERN Statin
DVT PPx: NEWS INTERN Eliquis
FULL CODE
Anticipated Discharge: 24 - 48 hours
Subjective/Interval History
-
Date of Service: October 21, 2024
Patient was seen and examined. She reported feeling a whole lot better today, less short of breath. She denied any chest pain.
Objective Data
-
Labs:
Laboratory Results
10/21/24
06:26
WBC 12.7 H
Hgb 13.3
Hct 37.4
Plt Count 314
Sodium 130 L
Potassium 4.3
Chloride 91 L
Carbon Dioxide 31 H
BUN 20 H
Creatinine 0.7
Glucose 96
Calcium 9.4
Total Bilirubin 0.8
AST 50 H
ALT 237 H
Alkaline Phosphatase 104
Vital Signs:
Vital Signs
Temp Pulse Resp BP Pulse Ox
97.5 F 79 16 127/69 96
10/21/24 10:54 10/21/24 10:54 10/21/24 10:54 10/21/24 10:54 10/21/24 10:54
--- NOTE | 2024-10-21 14:30 | CM ---
Patient seen at bedside with daughter Mitzi
cont on oxygen
home 02 assessment ordered
Agreeable to VN - options reviewed - prefer [facility]
notified [facility] liaison & referral to be added in [facility]
PLAN: Home, with [facility]
--- NOTE | 2024-10-21 14:51 | VNURNOTE ---
Home Health Liaison spoke with patient at bedside to discuss VN nurse/therapy, visits, schedule and homebound status. Patient is agreeable and understands that visits at home will be 2-3 x per week to assess and teach medical management. [facility]-2 days after discharge from . She confirms she has a scale at home. Watching if new home 02 needs- home 02 assessment pending. [facility] in [facility].
[2024-10-21 15:17] VITALS: BP 108/60
[2024-10-21] MEDS: PRAVACHOL 40 MG PO (17:13)
[2024-10-21 19:40] VITALS: BP 115/68
[2024-10-21 23:00] VITALS: BP 133/77
[2024-10-22 03:43] VITALS: BP 133/75
[2024-10-22 05:53] VITALS: BMI 23.7
[2024-10-22 06:48] LABS: Hematocrit 40.4 % (37.0-47.0); Mean Corp Hgb Conc. 34.7 g/dL (33.0-37.0); Mean Corpuscular Hgb 30.2 pg (27.0-31.0); Mean Corpuscular Volume 87.1 fL (81.0-99.0); Mean Platelet Volume 9.2 fL (7.4-10.4); Platelet Count 360 10^3/uL (130-400); Red Blood Cell Count 4.64 10^6/uL (4.20-5.40); Red Cell Dist. Width 13.2 % (11.5-14.5)
[2024-10-22 07:05] VITALS: BP 136/81
[2024-10-22 07:06] LABS: ALT (SGPT) 215 U/L (0-35); AST (SGOT) 42 U/L (14-36); Albumin 4.5 g/dl (3.5-5.0); Alkaline Phosphatase 101 U/L (38-126); Blood Urea Nitrogen 30 mg/dl (7-17); Calcium 9.8 mg/dl (8.4-10.2); Carbon Dioxide 30 mmol/L (22-30); Chloride 94 mmol/L (98-107); Estimated Creatinine Clearance 47 ml/min; Glucose 90 mg/dl (70-99); Potassium 4.1 mmol/L (3.5-5.1); Sodium 135 mmol/L (135-145); Total Bilirubin 0.8 mg/dl (0.2-1.3); Total Protein 7.3 g/dl (6.3-8.2); eGFR > 60.00
--- NOTE | 2024-10-22 08:19 | W.PN.HOSP.TC ---
Today's Communication/Plan
-
Discharge today
Assessment / Plan
Assessment / Plan
Physical Exam
General: No Apparent Distress
HEENT: Normocephalic
Respiratory: Rales
Cardiac: S1/S2, Regular Rhythm and HJR
GI: Soft and Non Tender. Positive bowel sounds.
Musculoskeletal: No Edema
Skin: Warm and Dry; No Rash
Neuro: AO x 3
Psych: Calm
Assessment/Plan
84 yo female with past medical history of atrial fibrillation on Eliquis, HTN and HLD presented to the ER with progressive shortness of breath and cough. She tested positive for COVID at home.
She states that over the past couple of weeks (prior to presentation) she has had worsening shortness of breath, where she feels winded when she's up and getting ready. She thought it was the recent initiation of Metoprolol for her A-fib. She has
noticed 6-7 weight gain over the past week. Over the past couple of days she has had increasing cough that kept her up at night as well as gastritis and some nausea. She tested positive for Covid on the morning of presentation. She is not on Lasix
at home.
She sees her Helper [employer] at [place].
Triage VS: T 98.3, P 73, RR 24, BP 155/82, SpO2 85% RA
LABS: WBC 11.5, Hg 13.1, PLT 259, Na 123, K+ 3.9, Cl 89, Cr 0.5, T. Bili 1.1, AST 101, ALT 381, Alk Phos 130
CXR
IMPRESSION:
Small bilateral pleural effusions with associated atelectasis and/or pneumonia, left greater than right.
Possible superimposed pulmonary interstitial edema. Cannot rule out component of underlying chronic interstitial lung disease.
MAR: Aravind Blair
Hypoxic Respiratory Insufficiency - RESOLVED - Secondary to Heart Failure Exacerbation and Possibly Covid-19
-patient tested positive for Covid at home but negative here; suspect false negative here
-Continue to monitor on telemetry
-Stop Decadron on discharge, patient is now on room air as well
-Covid precautions
-No need for home oxygen on discharge
-hold off on Remdesivir with elevated liver enzymes
Leukocytosis
-Suspected secondary to steroids
-Continue to monitor
Heart Failure unknown EF acute exacerbation
-This may be main reason for hypoxia
-IV Lasix transitioned to PO Lasix 20 mg daily
-Weight is improving, goal weight is 137 to 139 lbs
-Regarding SGLT2i: Farxiga is not covered, and Jardiance is $569.75 for a QTY of 30
-Continue ARB medication
-F/U TSH (add on to labs drawn pre steroids)
-TTE
-Cardiology consult
-Follow-up with your usual corporation lawyer
-Daily weights outpatient
Hyponatremia
-Na 123 initially, improved significantly. Patient Hypervolemic and is on HCTZ at home. She reports drinking a lot of water.
-hold HCTZ and stop at discharge
-Lasix as above
-PO Fluid restriction 40 ounces/24 hours
-Renal consult if no improvement with above interventions
Atrial Fibrillation
-Home Metoprolol Succinate increased to from 12.5 mg HS to 12.5 mg BID
-Continue Eliquis but 5 mg BID (increased from home 2.5 mg BID)
-Dr. Waters discussed with Dr. Blair and held CHECKER AND PACKER Flecainide (stopped Flecainide) -- just focus on rate control for now
-I confirmed with corporation lawyer today to stop Flecainide at discharge
Transaminitis in setting of Covid-19
-no abdominal pain
-Repeat CMP outpatient
Essential HTN
-hold HCTZ
-CHECKER AND PACKER Olmesartan 40mg PO QD
-CHECKER AND PACKER Amlodipine 5mg PO QD
HLD
-CHECKER AND PACKER Statin
DVT PPx: CHECKER AND PACKER Eliquis
FULL CODE
More than 30 minutes spent in discharge including
Final examination of the patient
Summarizing hospital stay
Instructions for continuing care to all relevant caregivers
Preparation of discharge records, prescriptions, and referral forms
Total time spent (in minutes): 42
Anticipated Discharge: Today
Subjective/Interval History
-
Date of Service: October 22, 2024
Patient was seen and examined. She denied any chest pain, shortness of breath or any other symptoms or complaints. She would like to go home today.
Objective Data
-
Labs:
Laboratory Results
10/22/24
06:11
WBC 11.0 H
Hgb 14.0
Hct 40.4
Plt Count 360
Sodium 135
Potassium 4.1
Chloride 94 L
Carbon Dioxide 30
BUN 30 H
Creatinine 0.8
Glucose 90
Calcium 9.8
Total Bilirubin 0.8
AST 42 H
ALT 215 H
Alkaline Phosphatase 101
Vital Signs:
Vital Signs
Temp Pulse Resp BP Pulse Ox
98.6 F 82 18 136/81 96
10/22/24 07:05 10/22/24 07:05 10/22/24 07:05 10/22/24 07:05 10/22/24 07:05
I&O
10/21/24 10/22/24 10/23/24
06:59 06:59 06:59
Intake Total 480 / 480
Balance 480 / 480
[2024-10-22] MEDS: DECADRON 6 MG PO (08:42)
[2024-10-22] MEDS: TOPROL XL 12.5 MG PO (08:42)
[2024-10-22] MEDS: NORVASC 5 MG PO (08:42)
[2024-10-22] MEDS: BENICAR 40 MG PO (08:42)
[2024-10-22] MEDS: PROTONIX 40 MG PO (08:43)
[2024-10-22] MEDS: ELIQUIS 5 MG PO (08:43)
[2024-10-22] MEDS: LASIX 20 MG IV (08:44)
--- NOTE | 2024-10-22 09:43 | W.PN.CD ---
Today's Communication / Plan
-
would transition to furosemide 20mg daily
would not resume flecainide or HCTZ on discharge
d/w patient importance of daily weight, signs of overdiuresis. I want to call her solids control technician.
Continue correct dose of Eliquis.
Okay for discharge from cardiovascular perspective. I will sign off. She should follow-up with her typical outpatient solids control technician.
Impression / Plan
-
OP Development Trainer is Dr. Ceja, [facility]
COVID19:
-positive at home, negative here and false negative suspected
-she is getting steroids, but no antiviral due to elevated LFT's
-management per primary team
-[facility] by [facility]
Acute HFpEF:
-Diuresed nicely, now at 138.1lbs.Reports feels good at 137-139lbs
-had been on HCTZ will transition to fursemide 20mg daily
-SGLT2i:Farxiga not covered,Jardiance $569.75 QTY 30
-continue ARB
-will hold off on MRA with hyponatremia
-follow up with Dr Ceja
AFIB: paroxysmal
-recently started on flecainide (per OP chart recent nuc stress test no ischemia) and restarted on metoprolol. Notes reviewed and previously on amio which was stopped last year due to cough.
-flec and metoprolol decreased due to symptomatic bradycardia recently.
-Will focus on rate control while Active COVID and stop flecainide given inappropriate Eliquis dosing, can reconsider resumption as OP with typical provider.
-Continue metoprolol, currently rate controlled.
-Eliquis dosed appropriately now.
Hyponatremia:
-improved with diuresis
-HCTZ stopped with improvement
HTN:
-stable on ARB, CCB, BB
-will have to break up her combo pill on discharge
-adding furosemide
Subjective:
feeling much better, up and walking around the room
Data:
Echo 07/21/24: EF 55-60%, mild concentric LVH, moderate (peak and mean gradients 40/21 mmhg, DEWAYNE 1.3 cm2), PAP 40-45 mmhg )
Physical Exam
Vital Signs/Labs
Vital Signs
Temp Pulse Resp BP Pulse Ox
98.6 F 82 18 136/81 96
10/22/24 07:05 10/22/24 08:44 10/22/24 07:05 10/22/24 08:44 10/22/24 07:05
10/21/24 10/22/24 10/23/24
06:59 06:59 06:59
Actual Weight 64.728 kg 62.641 kg
10/22/24 06:11
10/22/24 06:11
Magnesium 2.0 mg/dl (1.6-2.3) 10/20/24 05:48
Triglycerides 65 mg/dl (10-149) 10/20/24 05:48
LDL Cholesterol, Calc 82 mg/dl 10/20/24 05:48
VLDL Cholesterol, Calc 13 mg/dl (0-30) 10/20/24 05:48
HDL Cholesterol 68 mg/dl 10/20/24 05:48
10/20/24
05:48
Kcz-Q-Jufatgrlsfs Pept 7060
LAB Results
10/19/24 10/20/24
21:37 05:48
Troponin I 0.020 0.013
Physical Exam
Constitutional: No acute distress
Cardiovascular: Rhythm & rate is regular, Pedal edema is absent, JVD pressure is normal, Systolic murmur absent and Diastolic murmur absent
Respiratory: Respiratory effort normal, Lungs clear to auscul., Wheeze Absent, Crackles Absent and Rhonchi Absent
Neuro/Psych: AO x 3
Data Reviewed
-
Date of Service: October 22, 2024
Medical Decision Making: Review of Case with other Provider (Dr. Steward, recommendations for discharge medications okay to discharge)
EKG: Other (Rate controlled atrial fibrillation on telemetry)
[2024-10-22 11:05] VITALS: BP 128/74
--- NOTE | 2024-10-22 11:56 | CM ---
Patient chart reviewed
[facility]
[place] [facility] completed yesterday-does not qualify
PLAN: home with [facility]
to transport
[2024-10-22 14:43] VITALS: BP 125/69; PULSE 69; O2SAT 97
--- NOTE | 2024-10-22 15:02 | W.DCSUMMARY ---
Discharge Summary
Discharge Data
Date of Admission: 10/19/24
Date of Discharge: 10/22/24
Total time spent discharging patient (in min): 42
-
Pending Results: No
Hospital Course
84 y/o female with past medical history of atrial fibrillation on Eliquis, HTN and HLD presented to the emergency room with progressive shortness of breath and cough. She tested positive for COVID at home. She needs oxygen on admission, and she was
started on intravenous Lasix for heart failure. Patient's COVID test this hospitalization was negative and it was suspected to be falsely negative. Patient was started on steroids given her COVID and hypoxia. Patient could not get Remdesivir due to
her elevated AST and ALT. Cardiology was consulted and recommended stopping Flecainide. Her Eliquis dose was increased given to be the correct dosing for atrial fibrillation. SGLT2i medication was determined to be too expensive for the patient
(Farxiga not covered,Jardiance $569.75 QTY 30). The focus was for rate control in the setting of active COVID, and her beta trino dose frequency was increased. Her clinical condition improved and she was saturating oxygen well on room air.
Discharge Plan
-
Patient Disposition: Home with Home Care
Discharge Diagnosis/Procedures: Hypoxic Respiratory Insufficiency - RESOLVED - Secondary to Heart Failure Exacerbation and Possibly Covid-19
Leukocytosis -- suspected secondary to steroids
Heart Failure unknown EF acute exacerbation
Hyponatremia
Atrial Fibrillation
Transaminitis in setting of Covid-19
Essential Hypertension
Hyperlipidemia
Chest X-Ray Results (as per radiologist's report)
'IMPRESSION:
Small bilateral pleural effusions with associated atelectasis and/or pneumonia, left greater than right.
Possible superimposed pulmonary interstitial edema. Cannot rule out component of underlying chronic interstitial lung disease.'
Diet: Low Fat, Low Cholesterol and Low Sodium
Additional Diets: RESTRICT ALL ORAL/PO FLUID INTAKE TO 40 OUNCES DAILY
Activity: As tolerated
Blood Work: CBC, CMP and Magnesium with your primary care provider in 2 to 5 days from today (today is October 22, 2024)
Other Services: VN
Specialty Instructions: Weigh Daily- Call MD for wt gain/loss 3 lbs overnight/5 lbs in 1 week
Activity Restrictions/Additional Instructions:
Please follow-up with your usual transportation economics teacher in 1 to 3 weeks.
Please follow-up with your primary care provider.
Instructions: *PCP/Other Sound Assistant Heart Failure Instructions
Referrals:
Aram Quintanilla MD [Family Provider] - in less than 1 week
Additional Discharge Medication Instructions: You combination pill medication 'Vvskupstkr-Kjftaqnrxa-Ybiqcytbejiqtaoinsq' has been STOPPED
Flecainide has been STOPPED
New medication is Olmesartan 40 mg daily
New medication is Amlodipine 5 mg daily
Your Eliquis has been INCREASED to 5 mg BID
Your Metoprolol Succinate has been INCREASED to 12.5 mg BID
Furosemide is a new medication
Prescriptions:
New
olmesartan 40 mg tablet
40 mg PO DAILY Qty: 30 2RF
Eliquis 5 mg Tablet
5 mg PO BID Qty: 60 2RF
furosemide 20 mg Tablet
20 mg PO DAILY Qty: 30 1RF
metoprolol succinate 25 mg Tablet Extended Release 24 Hr
12.5 mg PO BID Qty: 30 1RF
amlodipine 5 mg Tablet
5 mg PO DAILY Qty: 30 1RF
Continued
pravastatin 40 mg Tablet
40 mg PO QPM
ascorbic acid (vitamin C) [Vitamin C] 500 mg Tablet
500 mg PO DAILY
magnesium 30 mg Tablet
30 mg PO DAILY
cholecalciferol (vitamin D3) 25 mcg (1,000 unit) Tablet
25 mcg PO DAILY
PreserVision AREDS
1 tab PO BID
Discontinued
flecainide 100 mg Tablet
50 mg PO BID
metoprolol succinate 25 mg Tablet Extended Release 24 Hr
12.5 mg PO HS
uvivjryrja-qibtmklxa-xppclmgyf 40-5-25 mg Tablet
1 tab PO DAILY
Eliquis 2.5 mg Tablet
2.5 mg PO BID
Discharge Orders:
Discharge Patient (As Directed); Ordered 10/22/24
Ordered By: Quincy Alcaraz
Discharge Date and Time
Discharge Date/Time: 10/22/24 16:53
Print Language: VINCENTIAN
[2024-10-22 15:33] VITALS: BP 118/66
--- NOTE | 2024-10-27 10:24 | W.HF.CON ---
Heart Failure
- LV Function
Left ventricular function study result: LV Ejection fraction >/= 50% (ECHO 07/21/24)
Ejection Fraction Percentage: 55-60
- ARNI
Patient already on ARNI: No
Heart Failure ARNI Not Indicated: LV Ejection Fraction >/= 40%
- ACEI/ARB
Patient already on ACEI/ARB: Yes
- Beta Tha
Patient already on Evidence Based Beta Tha: Yes
- Mineralocorticord Receptor Antagonist
Patient already on MRA: No
Heart Failure MRA Not Indicated: LV Ejection Fraction > 40%
- SGLT-2 Inhibitor
Patient already on SGLT-2 Inhibitor: No
Heart Failure SGLT-2 Inhibitor Contraindication: Patient Refusal
- Afib Anticoagulation
Patient already on Anticoagulation for Afib: Yes
- NYHA CHF Classification
NYHA CHF Classification Level: Class III - Symptoms w/ min exertion, interferes w/ nml daily activity
- ACC/AHA Stage
ACC/AHA Stage: Stage C: Symptomatic Heart Failure
== END 2024-10-22 16:53 | disposition home health service (06) | DRG 177 ==
LOC: 3 WEST ACU 22:03
PROVIDERS: ADMITTING PHYSICIAN Student in an Organized Health Care Education/Training Program; ATTENDING PHYSICIAN Hospitalist; EMERGENCY PHYSICIAN Emergency Medicine; FAMILY PHYSICIAN Family Medicine; OTHER PHYSICIAN Internal Medicine
DX: U07.1 COVID-19 (principal); I50.31 Acute diastolic (congestive) heart failure; E87.1 Hypo-osmolality and hyponatremia; I48.0 Paroxysmal atrial fibrillation; R09.02 Hypoxemia; R74.01 Elevation of levels of liver transaminase levels; R06.89 Other abnormalities of breathing; I11.0 Hypertensive heart disease with heart failure; E78.00 Pure hypercholesterolemia, unspecified; Z79.899 Other long term (current) drug therapy; Z79.01 Long term (current) use of anticoagulants
CPT/HCPCS: 71045; 80053; 80061; 82248; 82550; 82728; 83615; 83735; 83880; 83935; 84145; 84295; 84300; 84443; 84484; 85025; 85027; 85652; 86140; 87040; 87502; 87811; 93005; 94640; 96374; 96375; 97162; 99291

== ENCOUNTER → 2024-10-27 07:17 | Outpatient (REF) | payer MEDICARE, OTHER, SELFPAY ==
[2024-10-27 09:33] LABS: % Basophils 0.7 % (0-2); % Eosinophils 3.3 % (0-6); % Immature Granulocytes 0.4 % (0-0.5); % Lymphocytes 40.3 % (20.5-51.1); % Monocytes 11.6 % (1.7-9.3); % Neutrophils 43.7 % (42.2-75.2); Absolute Basophils 0.1 10^3/uL (0-0.2); Absolute Eosinophils 0.2 10^3/uL (0-0.7); Absolute Lymphocytes 2.7 10^3/uL (1.2-3.4); Absolute Monocytes 0.8 10^3/uL (0.1-0.6); Absolute Neutrophils 2.9 10^3/uL (1.4-6.5); Hematocrit 40.6 % (37.0-47.0); Hemoglobin 13.8 g/dL (12.0-16.0); Mean Corpuscular Hgb 30.9 pg (27.0-31.0); Nucleated Red Blood Cells % 0 %; Platelet Count 371 10^3/uL (130-400); Red Blood Cell Count 4.46 10^6/uL (4.20-5.40); Red Cell Dist. Width 12.7 % (11.5-14.5); White Blood Cell Count 6.7 10^3/uL (4.8-10.8)
[2024-10-27 10:00] LABS: ALT (SGPT) 76 U/L (0-35); AST (SGOT) 28 U/L (14-36); Albumin 4.2 g/dl (3.5-5.0); Alkaline Phosphatase 82 U/L (38-126); Blood Urea Nitrogen 23 mg/dl (7-17); Calcium 9.3 mg/dl (8.4-10.2); Carbon Dioxide 28 mmol/L (22-30); Chloride 102 mmol/L (98-107); Glucose 94 mg/dl (70-99); Magnesium 2.1 mg/dl (1.6-2.3); Potassium 4.6 mmol/L (3.5-5.1); Sodium 139 mmol/L (135-145); Total Bilirubin 0.9 mg/dl (0.2-1.3); Total Protein 6.7 g/dl (6.3-8.2); eGFR > 60.00
== END ==
LOC: HWLAB 07:17
PROVIDERS: ATTENDING PHYSICIAN Family Medicine
DX: I10 Essential (primary) hypertension (principal); R74.01 Elevation of levels of liver transaminase levels; D72.829 Elevated white blood cell count, unspecified
CPT/HCPCS: 36415; 80053; 83735; 85025

== ENCOUNTER → 2024-11-28 07:51 | Outpatient (REF) | payer MEDICARE, OTHER, SELFPAY ==
[2024-11-28 09:00] LABS: % Basophils 0.6 % (0-2); % Eosinophils 1.7 % (0-6); % Immature Granulocytes 0.2 % (0-0.5); % Lymphocytes 40.9 % (20.5-51.1); % Monocytes 12.2 % (1.7-9.3); % Neutrophils 44.4 % (42.2-75.2); Absolute Eosinophils 0.1 10^3/uL (0-0.7); Absolute Lymphocytes 2.2 10^3/uL (1.2-3.4); Absolute Monocytes 0.7 10^3/uL (0.1-0.6); Absolute Neutrophils 2.4 10^3/uL (1.4-6.5); Hematocrit 40.6 % (37.0-47.0); Hemoglobin 13.5 g/dL (12.0-16.0); Mean Corp Hgb Conc. 33.3 g/dL (33.0-37.0); Mean Corpuscular Hgb 30.1 pg (27.0-31.0); Mean Corpuscular Volume 90.4 fL (81.0-99.0); Mean Platelet Volume 9.8 fL (7.4-10.4); Nucleated Red Blood Cells % 0 %; Platelet Count 237 10^3/uL (130-400); Red Blood Cell Count 4.49 10^6/uL (4.20-5.40); Red Cell Dist. Width 12.7 % (11.5-14.5); White Blood Cell Count 5.4 10^3/uL (4.8-10.8)
[2024-11-28 09:12] LABS: ALT (SGPT) 134 U/L (0-35); AST (SGOT) 80 U/L (14-36); Albumin 4.1 g/dl (3.5-5.0); Alkaline Phosphatase 77 U/L (38-126); Blood Urea Nitrogen 21 mg/dl (7-17); Calcium 9.4 mg/dl (8.4-10.2); Carbon Dioxide 30 mmol/L (22-30); Chloride 108 mmol/L (98-107); Glucose 90 mg/dl (70-99); Potassium 4.2 mmol/L (3.5-5.1); Sodium 143 mmol/L (135-145); Total Bilirubin 0.6 mg/dl (0.2-1.3); Total Protein 6.6 g/dl (6.3-8.2); eGFR 56.25
== END ==
LOC: HWLAB 07:51
PROVIDERS: ATTENDING PHYSICIAN Internal Medicine; FAMILY PHYSICIAN Family Medicine
DX: I48.0 Paroxysmal atrial fibrillation (principal)
CPT/HCPCS: 36415; 80053; 85025

== ENCOUNTER → 2024-12-03 10:08 | Outpatient (REF) | payer MEDICARE, OTHER, SELFPAY ==
[2024-12-03 13:05] LABS: ALT (SGPT) 182 U/L (0-35); AST (SGOT) 87 U/L (14-36)
== END ==
LOC: HWLAB 10:08
PROVIDERS: ATTENDING PHYSICIAN Internal Medicine; FAMILY PHYSICIAN Family Medicine
DX: I48.0 Paroxysmal atrial fibrillation (principal)
CPT/HCPCS: 36415; 84450; 84460

== ENCOUNTER → 2025-01-08 07:11 | Outpatient (REF) | payer MEDICARE, OTHER, SELFPAY ==
[2025-01-08 12:29] LABS: ALT (SGPT) 25 U/L (0-35); AST (SGOT) 29 U/L (14-36)
== END ==
LOC: HWLAB 07:11
PROVIDERS: ATTENDING PHYSICIAN Internal Medicine; FAMILY PHYSICIAN Family Medicine
DX: E78.5 Hyperlipidemia, unspecified (principal)
CPT/HCPCS: 36415; 84450; 84460

== ENCOUNTER → 2025-04-23 06:53 | Outpatient (REF) | payer MEDICARE, OTHER, SELFPAY ==
[2025-04-23 09:50] LABS: ALT (SGPT) 30 U/L (0-35); AST (SGOT) 30 U/L (14-36); Albumin 4.5 g/dl (3.5-5.0); Alkaline Phosphatase 57 U/L (38-126); Blood Urea Nitrogen 20 mg/dl (7-17); Calcium 9.5 mg/dl (8.4-10.2); Carbon Dioxide 31 mmol/L (22-30); Chloride 104 mmol/L (98-107); Glucose 91 mg/dl (70-99); HDL Cholesterol 61 mg/dl; Potassium 4.1 mmol/L (3.5-5.1); Sodium 140 mmol/L (135-145); Total Protein 7.5 g/dl (6.3-8.2); eGFR > 60.00
[2025-04-23 09:55] LABS: LDL Cholesterol, Calculated 101 mg/dl; Very Low Density Lipoprotein 31 mg/dl (0-30)
== END ==
LOC: HWLAB 06:53
PROVIDERS: ATTENDING PHYSICIAN Internal Medicine; FAMILY PHYSICIAN Family Medicine
DX: E78.5 Hyperlipidemia, unspecified (principal)
CPT/HCPCS: 36415; 80053; 80061

== ENCOUNTER → 2025-06-02 13:52 | Outpatient (REF) | payer MEDICARE, OTHER, SELFPAY | LOC: HWWDC 13:52 | PROVIDERS: ATTENDING PHYSICIAN Family Medicine | DX: Z12.31 Encounter for screening mammogram for malignant neoplasm of breast (principal) | CPT/HCPCS: 77063; 77067 ==